=== PATIENT | female | born 1945 | race Caucasian/White ===

== ENCOUNTER 2018-12-06 19:41 | Emergency (ER) | payer MEDICARE, BC ==
[~2018-12-06] VITALS: Ht 157.5 cm; Wt 71.7 kg
[2018-12-06] MEDS ORDERED: LIDOCAINE VISCUS 2% 15 ML UDC MM ONE (21:15)
[2018-12-06] MEDS ORDERED: HYDROCODONE/APAP 5-325MG TABLET PO ONE (21:15)
[2018-12-06] MEDS ORDERED: HYDROCODONE/APAP 5-325MG TABLET ONE (21:21)
[2018-12-06] MEDS ORDERED: LIDOCAINE VISCUS 2% 15 ML UDC ONE (21:22)
--- NOTE | 2018-12-06 22:15 | NUR ---
Patient discharged to home in stable conditon. Written and verbal after care instructions given. Patient verbalizes understanding of instructions. AMBULATORY W/ STABLE GAIT INSTRUCTED NOT TO DRIVE' ALL BELONGINGS W/ PT
[2018-12-07 00:46] VITALS: BP 119/54
== END 2018-12-06 21:30 | disposition home or self-care (01) ==
LOC: ER 19:41
DX: S60.222A Contusion of left hand, initial encounter (principal); S60.221A Contusion of right hand, initial encounter; S49.91XA Unspecified injury of right shoulder and upper arm, initial encounter; E11.9 Type 2 diabetes mellitus without complications; V49.9XXA Car occupant (driver) (passenger) injured in unspecified traffic accident, initial encounter; Y93.89 Activity, other specified; Y92.89 Other specified places as the place of occurrence of the external cause; Y99.8 Other external cause status
CPT/HCPCS: 73130; A4663